=== PATIENT | male | born 1980 | race Caucasian/White ===

== ENCOUNTER 2024-09-08 12:02 | Emergency (ER) | payer SELFPAY ==
[2024-09-08 12:06] VITALS: BP 111/74; PULSE 61; TEMP 36.7; O2SAT 98; BMI 29.8
[2024-09-08] MEDS: LIDOCAINE HCL 1% 100 MG/10 ML MDV INJ (12:15)
--- NOTE | 2024-09-08 12:48 | ED_ITS ---
HPI HPI - General Adult General Chief complaint: Wound/Laceration Stated complaint: LIP LACERATION Time Seen by Provider: 09/08/24 12:10 Source: patient Mode of arrival: walk-in Limitations: no limitations History of Present Illness HPI narrative: 44-year-old male presents to the emergency department for facial laceration. This was sustained just before coming into the emergency department when he was working on some farm equipment and his face came down and hit on a piece of metal. It has been a long time since he has had a tetanus shot. No other injury was sustained. There was some bleeding that was controlled with pressure. Related Data Allergies Allergy/AdvReac Type Severity Reaction Status Date / Time No Known Drug Allergies Allergy Verified 09/08/24 12:06 Review of Systems ROS Narrative A ten point review of systems is negative except as noted above. PFSH PFSH Social History Little interest or pleasure in doing things: not at all Feeling down, depressed, or hopeless: not at all Exam Narrative Exam Narrative: Nurses note and vital signs reviewed and patient is not hypoxic. General: The patient appears well and in no apparent distress. Patient is resting comfortably on cart. Skin: Warm, dry, no pallor noted. Head: Normocephalic; just below the left corner of his mouth is a C-shaped 1 cm laceration. It is not a through and through laceration. There is no active bleeding. No tooth is cracked or chipped or loose. No other wounds are present Eye: Normal conjunctiva, no drainage Ears, Nose, Mouth, and Throat: oral mucosa is moist. Nares patent. Cardiovascular: Regular Rate and Rhythm Respiratory: Patient is in no distress, no accessory muscle use, lungs are clear to auscultation, no wheezing, rales or rhonchi Back: non-tender GI: Soft and nontender Musculoskeletal: All joints have full range of motion Neurological: A&O, normal speech Psychiatric: Cooperative Constitutional Vital Signs, click to edit/add: Last Vital Signs Temp 98.1 F 09/08/24 12:06 Pulse 61 09/08/24 12:06 Resp 18 09/08/24 12:06 BP 111/74 09/08/24 12:06 Pulse Ox 98 09/08/24 12:06 O2 Del Method Room Air 09/08/24 12:06 Course Vital Signs Vital signs: Vital Signs Temperature 98.1 F 09/08/24 12:06 Pulse Rate 61 09/08/24 12:06 Respiratory Rate 18 09/08/24 12:06 Blood Pressure 111/74 09/08/24 12:06 Pulse Oximetry 98 09/08/24 12:06 Oxygen Delivery Method Room Air 09/08/24 12:06 Temperature 98.1 F 09/08/24 12:06 Pulse Rate 61 09/08/24 12:06 Respiratory Rate 18 09/08/24 12:06 Blood Pressure 111/74 09/08/24 12:06 Pulse Oximetry 98 09/08/24 12:06 Oxygen Delivery Method Room Air 09/08/24 12:06 Medical Decision Making MDM Narrative Medical decision making narrative: The following procedure was performed by me. Local infiltration was carried out with 1% lidocaine without epinephrine resulting in complete skin anesthesia. The area was prepped with Betadine x 3 and draped sterilely. It was explored f or foreign bodies and none were found and then closed with two 6-0 Ethilon sutures resulting in good skin reapproximation and no complications. The patient tolerated the procedure well. Tetanus is updated and sutures are to be removed in a week. Treatment diagnosis and follow-up were discussed with the patient Differential Diagnosis Differential Diagnosis: Laceration, need for tetanus immunization Discharge Plan Discharge Chief Complaint: Wound/Laceration Clinical Impression: Facial laceration Patient Disposition: Home, Self-Care Time of Disposition Decision: 12:46 Condition: Good Mode of Transportation: Private Vehicle Print Language: Tajik Instructions: Laceration (ED) Additional Instructions: Sutures to be removed in 1 week. Referrals: BOOGIE BURNHAM [Primary Care Provider, [facility] [facility]] - 1 week
[2024-09-08] MEDS: ADACEL DIPH,PERTUSS(ACELL),TET VAC/PF 0.5 ML ADULT SYRINGE IM (13:04)
== END 2024-09-08 13:12 | disposition home or self-care (01) ==
PROVIDERS: Emergency Provider Emergency Medicine; PCP Nurse Practitioner
DX: S01.81XA Laceration without foreign body of other part of head, initial encounter (principal); W26.8XXA Contact with other sharp object(s), not elsewhere classified, initial encounter; Z23 Encounter for immunization
CPT/HCPCS: 12011; 90471; 90715; 99283